=== PATIENT | female | born 1990 | race African-American/Black ===

== ENCOUNTER → 2018-05-30 | Outpatient (CLI) | payer OTHER | LOC: M RAD 07:33 | DX: R11.0 Nausea (principal) ==

== ENCOUNTER 2018-06-12 09:20 | Emergency (ER) | payer OTHER ==
[2018-06-12 09:54] LABS: AMORPHOUS SEDIMENT RFX SMALL (NEGATIVE); KETONE, URINE AUTO RFX NEGATIVE (NEGATIVE); LEUKOCYTE ESTERASE UR AUTO RFX 3+ (NEGATIVE); MUCUS, URINE RFX SMALL (NEGATIVE); NITRITE, URINE AUTO RFX POSITIVE (NEGATIVE); RBC, URINE AUTO RFX TNTC /HPF (0-3); SPECIFIC GRAVITY UR AUTO RFX 1.017 (1.002-1.035); SQUAM EPITHELIAL CELL UR AURFX 3 /HPF (0-6); TRANSITIONAL EPITHELIAL AU RFX 1 /HPF; WBC, URINE AUTO RFX TNTC /HPF (0-3)
[2018-06-12] MEDS ORDERED: NITROFURANTOIN (MACROBID) 100 MG CAP As Ordered (10:06)
== END 2018-06-12 10:16 | disposition home or self-care (01) ==
LOC: M ED 09:20
DX: N30.01 Acute cystitis with hematuria (principal); Z79.899 Other long term (current) drug therapy
CPT/HCPCS: 81001

== ENCOUNTER 2018-07-20 11:14 | Emergency (ER) | payer OTHER ==
[2018-07-20 11:44] LABS: KETONE, URINE AUTO RFX NEGATIVE (NEGATIVE); MUCUS, URINE RFX SMALL (NEGATIVE); NITRITE, URINE AUTO RFX NEGATIVE (NEGATIVE); RBC, URINE AUTO RFX 0 /HPF (0-3); SPECIFIC GRAVITY UR AUTO RFX 1.019 (1.002-1.035); SQUAM EPITHELIAL CELL UR AURFX 4 /HPF (0-6); WBC, URINE AUTO RFX 4 /HPF (0-3)
[2018-07-20 11:47] LABS: LEUKOCYTE ESTERASE UR AUTO RFX TRACE (NEGATIVE)
== END 2018-07-20 12:12 | disposition home or self-care (01) ==
LOC: M ED 11:14
DX: N39.8 Other specified disorders of urinary system (principal); Z79.899 Other long term (current) drug therapy
CPT/HCPCS: 81001

== ENCOUNTER 2018-09-26 13:02 | Emergency (ER) | payer OTHER ==
[~2018-09-26] VITALS: Ht 160 cm; Wt 65.9 kg
[2018-09-26 13:02] VITALS: BP 124/76
[~2018-09-26 13:02] MED LIST: CIPR-249 PO; MACR100C43 PO; OMEP20CA3 PO; ONDA4TAB5; ZOFR4TAB14 PO; ZOFR4TAB16 PO
== END 2018-09-26 14:11 | disposition left against medical advice (07) ==
LOC: M ED 13:02
DX: Z53.21 Procedure and treatment not carried out due to patient leaving prior to being seen by health care provider (principal)

== ENCOUNTER 2018-09-29 18:31 | Emergency (ER) | payer OTHER ==
[~2018-09-29] VITALS: Ht 160 cm; Wt 65.9 kg
[2018-09-29 21:04] VITALS: BP 120/73
[2018-09-29 21:52] LABS: CHLAMYDIA DNA AMPLIFICATION NEGATIVE (NEGATIVE); GC DNA AMPLIFICATION NEGATIVE (NEGATIVE)
== END 2018-09-29 21:05 | disposition home or self-care (01) ==
LOC: M ED 18:31
DX: N89.8 Other specified noninflammatory disorders of vagina (principal)